=== PATIENT | male | born 1960 | race Caucasian/White ===

== ENCOUNTER 2016-07-25 10:43 | Outpatient (CLI) | payer BC, OTHER | END 2016-07-25 10:44 | disposition home or self-care (01) | DX: G47.33 Obstructive sleep apnea (adult) (pediatric) (principal) ==

== ENCOUNTER 2016-10-02 10:47 | Outpatient (CLI) | payer BC, OTHER | END 2016-10-02 10:48 | disposition home or self-care (01) | DX: G47.33 Obstructive sleep apnea (adult) (pediatric) (principal) ==

== ENCOUNTER 2017-07-10 15:05 | Outpatient (CLI) | payer BC, OTHER ==
[2017-07-10 15:02] LABS: BASOPHILS # (AUTO) 0.1 10^3/uL (0.0-0.1); BASOPHILS % (AUTO) 1.3 %; EOSINOPHILS # (AUTO) 0.1 10^3/uL (0.0-0.7); EOSINOPHILS % (AUTO) 3.2 %; HCT - HEMATOCRIT 45.8 % (42.0-52.0); HGB - HEMOGLOBIN 15.6 g/dL (14.0-18.0); LYMPHOCYTES # (AUTO) 1.1 10^3/uL (1.5-3.5); MEAN CORPUSCULAR HEMOGLOBIN 30.2 pg (27.0-31.0); MEAN CORPUSCULAR HGB CONC 34.2 g/dL (32.0-36.0); MEAN CORPUSCULAR VOLUME 88.2 fL (80.0-94.0); MEAN PLATELET VOLUME 11.8 fL (7.4-11.4); MONOCYTES # (AUTO) 0.5 10^3/uL (0.0-1.0); MONOCYTES % (AUTO) 10.1 %; NEUTROPHILS # (AUTO) 2.9 10^3/uL (1.5-6.6); NEUTROPHILS % (AUTO) 61.4 %; RED BLOOD COUNT 5.19 10^6/uL (4.70-6.10); RED CELL DISTRIBUTION WIDTH 13.4 % (12.0-15.0); UNCORRECTED WHITE BLOOD COUNT 4.7 x10^3/uL; WHITE BLOOD COUNT 4.7 x10^3/uL (4.8-10.8)
[2017-07-10 15:12] LABS: ALBUMIN/GLOBULIN RATIO 1.4 (1.0-2.2); BILIRUBIN,TOTAL 1.1 mg/dL (0.2-1.0); BUN - BLOOD UREA NITROGEN 24 mg/dL (6-20); CARBON DIOXIDE - CO2 26 mmol/L (21-32); CHLORIDE 102 mmol/L (101-111); CHOL/HDL RATIO 3.5 (<5.0); CHOLESTEROL 178 mg/dL; GFR - MDRD 76 (>89); GLUCOSE 107 mg/dL (70-100); HDL CHOLESTEROL 51 mg/dL; LDL/HDL RATIO 2.2 (<3.6); POTASSIUM 4.3 mmol/L (3.5-5.0); SODIUM 136 mmol/L (135-145); TOTAL PROTEIN 7.5 g/dL (6.7-8.2); TRIGLYCERIDES 84 mg/dL; VLDL CHOLESTEROL 17 mg/dL
== END 2017-07-10 15:06 | disposition home or self-care (01) ==
LOC: LAB.WCP 15:05
PROVIDERS: ATTEND Family Medicine
DX: Z00.00 Encounter for general adult medical examination without abnormal findings (principal); Z12.5 Encounter for screening for malignant neoplasm of prostate
CPT/HCPCS: 36415; 80053; 80061; 84153; 84443; 85025

== ENCOUNTER 2017-11-25 14:54 | Emergency (ER) | payer OTHER ==
--- NOTE | 2017-11-25 15:44 | ED Physician Documentation ---
PD HPI TRUNK INJURY - Stated complaint Stated Complaint: LEFT RIB AND BACK INJ. - Chief complaint Chief Complaint: Trauma Ch/Bk - History obtained from History obtained from: Patient, Family - History of Present Illness Location: Anterior chest, Posterior chest Type of injury: Crush Timing - onset: Today Timing - duration: Minutes Timing - details: Abrupt onset, Still present Quality: Pain, Sharp Improved by: Rest, Immobilization Worsened by: Moving, Palpating Associated symtptoms: No: Weakness, Numbness, Tingling, Swelling, Discoloration , Feel faint, Syncope Contributing factors: No: Anticoagulated Where injury occured: Work Similar symptoms before: Has not had sx before Recently seen: Not recently seen - Additional information Additional information: 57-year-old 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 He had loss of air but not LOC. He has pain to breath or move. He is not short of breath or faint feeling. Review of Systems Constitutional: denies: Fever Eyes: denies: Decreased vision Ears: denies: Ear pain Nose: denies: Congestion Throat: denies: Sore throat Cardiac: reports: Chest pain / pressure. denies: Pedal edema, Calf pain Respiratory: denies: Dyspnea, Cough GI: denies: Abdominal Pain, Nausea, Vomiting : denies: Dysuria, Frequency PD PAST MEDICAL HISTORY - Past Medical History Cardiovascular: Hypertension Respiratory: Sleep apnea, CPAP use, Other HEENT: None - Present Medications Home Medications: Ambulatory Orders Medication Instructions Recorded Confirmed Lisinopril 30 mg PO DAILY 08/13/13 08/13/13 HYDROcod/ACETAM 5/325 [[place] 5/325] 1 - 2 ea PO Q6H PRN #15 tablet 11/25/17 - Allergies Allergies/Adverse Reactions: Allergies Allergy/AdvReac Type Severity Reaction Status Date / Time No Known Drug Allergies Allergy Verified 11/25/17 16:28 PD ED PE NORMAL - Vitals Vital signs reviewed: Yes (hypertensive) - General General: Alert and oriented X 3, No acute distress, Well developed/nourished - HEENT HEENT: Atraumatic, PERRL, EOMI - Neck Neck: Supple, no meningeal sign, No bony TTP - Cardiac Cardiac: RRR, No murmur - Respiratory Respiratory: No respiratory distress, Clear bilaterally, Other (There is a bruise to the posterior chest wall mid thoracic spine with surrounding tenderness. There is no crepitance. There is a corresponding bruise to the sternum and some pain to the left lateral chest wall. ) - Abdomen Abdomen: Soft, Non tender (specifically not tender over the left upper quadrant. ) - Back Back: No CVA TTP, No spinal TTP - Derm Derm: Normal color, Warm and dry, No rash - Extremities Extremities: No deformity, No edema - Neuro Neuro: Alert and oriented X 3, No motor deficit, No sensory deficit, Normal speech Eye Opening: Spontaneous Motor: Obeys Commands Verbal: Oriented GCS Score: 15 - Psych Psych: Normal mood, Normal affect Results - Vitals Vitals: Vital Signs - 24 hr 11/25/17 15:09 Temperature 36.8 C Heart Rate 79 Respiratory 22 Rate Blood Pressure 140/89 H O2 Saturation 98 Oxygen O2 Source Room air - Labs Labs: Laboratory Tests 11/25/17 11/25/17 15:55 15:55 WBC 9.1 RBC 5.41 Hgb 16.2 Hct 47.4 MCV 87.5 MCH 30.0 MCHC 34.3 RDW 13.1 Plt Count 91 L MPV 10.9 Neut # 7.3 H Lymph # 1.1 L [place] # 0.6 Eos # 0.1 Baso # 0.0 Absolute Nucleated RBC 0.01 Nucleated RBC % 0.2 Sodium 138 Potassium 4.6 Chloride 105 Carbon Dioxide 26 Anion Gap 7.0 BUN 23 H Creatinine 1.1 Estimated GFR (MDRD) 69 L Glucose 115 H Calcium 9.9 Total Bilirubin 0.9 AST 36 ALT 30 Alkaline Phosphatase 80 Total Protein 7.7 Albumin 4.6 Globulin 3.1 Albumin/Globulin Ratio 1.5 Lipase 38 - Rads (name of study) CT chest with Radiology: Prelim report reviewed (Impression: Mild anterior and posterior chest wall subcutaneous fat stranding could represent chest wall contusions otherwise no acute findings are seen.), EMP read indepedently, See rad report PD MEDICAL DECISION MAKING - ED course Complexity details: reviewed results, re-evaluated patient, considered differential, d/w patient, d/w family ED course: 57-year-old male who his upper torso was clamped in the canopy of an F-18 fighter jet has bruises to his back and his anterior chest and on CT scanning he has no evidence of fractures or internal injuries. He does have bruising to the surface. Departure - Departure Disposition: 01 Home, Self Care Clinical Impression: Chest wall contusion Qualifiers: Encounter type: initial encounter Laterality: unspecified laterality Qualified Code(s): S20.219A - Contusion of unspecified front wall of thorax, initial encounter Condition: Stable Instructions: ED Contusion Chest Wall Follow-Up: Jair Fletcher MD [Primary Care Provider] - Prescriptions: HYDROcod/ACETAM 5/325 [[place] 5/325] 1 - 2 ea PO Q6H PRN #15 tablet PRN Reason: Pain
[2017-11-25] MEDS ORDERED: IOPAMIDOL-300 100 ML VIAL ONE (16:02)
[2017-11-25 16:03] LABS: BASOPHILS % (AUTO) 0.4 %; EOSINOPHILS # (AUTO) 0.1 10^3/uL (0.0-0.7); EOSINOPHILS % (AUTO) 1.2 %; HGB - HEMOGLOBIN 16.2 g/dL (14.0-18.0); LYMPHOCYTES # (AUTO) 1.1 10^3/uL (1.5-3.5); LYMPHOCYTES % (AUTO) 12.1 %; MEAN CORPUSCULAR HGB CONC 34.3 g/dL (32.0-36.0); MEAN CORPUSCULAR VOLUME 87.5 fL (80.0-94.0); MEAN PLATELET VOLUME 10.9 fL (7.4-11.4); MONOCYTES # (AUTO) 0.6 10^3/uL (0.0-1.0); MONOCYTES % (AUTO) 6.7 %; NEUTROPHILS # (AUTO) 7.3 10^3/uL (1.5-6.6); NEUTROPHILS % (AUTO) 79.6 %; PLT - PLATELET COUNT 91 10^3/uL (130-450); RED BLOOD COUNT 5.41 10^6/uL (4.70-6.10); RED CELL DISTRIBUTION WIDTH 13.1 % (12.0-15.0); WHITE BLOOD COUNT 9.1 x10^3/uL (4.8-10.8)
[2017-11-25 16:12] LABS: ALBUMIN 4.6 g/dL (3.2-5.5); ALBUMIN/GLOBULIN RATIO 1.5 (1.0-2.2); BILIRUBIN,TOTAL 0.9 mg/dL (0.2-1.0); CALCIUM 9.9 mg/dL (8.5-10.3); CREATININE 1.1 mg/dL (0.6-1.2); TOTAL PROTEIN 7.7 g/dL (6.7-8.2)
--- NOTE | 2017-11-25 16:59 | CT Preliminary Report ---
Exam: CT CHEST W/ IMPRESSION: Mild anterior and posterior chest wall subcutaneous fat stranding, could represent chest wall contusions. Otherwise, no acute findings are seen. [id number]
--- NOTE | 2017-11-25 16:59 | CT Report ---
EXAM: CT CHEST EXAM DATE: 11/25/2017 04:23 PM. CLINICAL HISTORY: Upper chest sandwiched by F18 canopy. COMPARISONS: None. TECHNIQUE: Routine helical CT imaging was performed through the chest. IV contrast: 80 ML Isovue 300. Reconstructions: Coronal and sagittal. In accordance with CT protocol optimization, one or more of the following dose reduction techniques w ere utilized for this exam: automated exposure control, adjustment of mA and/or KV based on patient s ize, or use of iterative reconstructive technique. FINDINGS: Mediastinum: No thoracic aortic aneurysm, dissection or laceration. No mediastinal blood se en. Normal heart size. No mediastinal or hilar lymphadenopathy. Lungs: Mild breathing motion artifact noted. No acute findings are seen. No consolidation, airspace d isease, pleural effusion or pneumothorax. Bones: No evidence for acute fracture. Mild anterior and posterior chest wall subcutaneous fat stranding, could represent chest wall contusi ons. No acute findings seen in the upper abdomen. IMPRESSION: Mild anterior and posterior chest wall subcutaneous fat stranding, could represent chest wall contusions. Otherwise, no acute findings are seen. [facility] Referring Provider Line: [phone] SITE ID: [id number]
[2017-11-25] MEDS ORDERED: IOPAMIDOL-300 100 ML VIAL IVP ONE (17:19)
[2017-11-25 18:15] VITALS: BP 140/90
== END 2017-11-25 17:32 | disposition home or self-care (01) ==
LOC: ED 14:54
DX: S20.219A Contusion of unspecified front wall of thorax, initial encounter (principal); W23.0XXA Caught, crushed, jammed, or pinched between moving objects, initial encounter; Y92.135 Garage on military base as the place of occurrence of the external cause; Y99.0 Civilian activity done for income or pay; I10 Essential (primary) hypertension; G47.30 Sleep apnea, unspecified
CPT/HCPCS: 1040M; 36415; 71260; 80053; 83690; 85025; 99283; Q9967

== ENCOUNTER 2018-08-13 15:12 | Outpatient (CLI) | payer OTHER | END 2018-08-13 15:13 | disposition home or self-care (01) | LOC: SC 15:12 | PROVIDERS: ATTEND Nurse Practitioner Family | DX: G47.33 Obstructive sleep apnea (adult) (pediatric) (principal) | CPT/HCPCS: 99212; 99213 ==

== ENCOUNTER 2019-05-13 06:43 | Day surgery (SDC) | payer OTHER ==
[2019-05-13] MEDS ORDERED: LACTATED RINGERS 1,000 ML IV ONE (07:21)
[2019-05-13] MEDS ORDERED: MIDAZOLAM 2 MG/2 ML VIAL IVP ONE (08:36)
[2019-05-13] MEDS ORDERED: fentaNYL 250 MCG/5 ML VIAL IVP ONE (08:36)
[2019-05-13 09:22] VITALS: BP 104/77
== END 2019-05-13 06:44 | disposition home or self-care (01) ==
LOC: SDS 06:43
PROVIDERS: ATTEND Surgery
PROC: 0DBP8ZZ Excision of Rectum, Via Natural or Artificial Opening Endoscopic (ICD-10-PCS; principal; 2019-05-13 08:30)
DX: Z12.11 Encounter for screening for malignant neoplasm of colon (principal); K62.1 Rectal polyp; I10 Essential (primary) hypertension; G47.30 Sleep apnea, unspecified
CPT/HCPCS: 45380; 88305; J3010; J7120

== ENCOUNTER 2019-08-10 07:30 | Outpatient (CLI) | payer OTHER ==
[2019-08-10 12:04] LABS: BASOPHILS # (AUTO) 0.1 10^3/uL (0.0-0.1); BASOPHILS % (AUTO) 1.1 %; EOSINOPHILS # (AUTO) 0.1 10^3/uL (0.0-0.7); EOSINOPHILS % (AUTO) 3.1 %; HGB - HEMOGLOBIN 15.6 g/dL (14.0-18.0); LYMPHOCYTES # (AUTO) 1.2 10^3/uL (1.5-3.5); LYMPHOCYTES % (AUTO) 25.3 %; MEAN CORPUSCULAR HEMOGLOBIN 29.8 pg (27.0-31.0); MEAN CORPUSCULAR HGB CONC 32.7 g/dL (32.0-36.0); MEAN PLATELET VOLUME 14.1 fL (7.4-11.4); MONOCYTES # (AUTO) 0.5 10^3/uL (0.0-1.0); MONOCYTES % (AUTO) 10.5 %; NEUTROPHILS # (AUTO) 2.7 10^3/uL (1.5-6.6); NEUTROPHILS % (AUTO) 59.8 %; PLT - PLATELET COUNT 98 10^3/uL (130-450); RED BLOOD COUNT 5.24 10^6/uL (4.70-6.10); RED CELL DISTRIBUTION WIDTH 12.8 % (12.0-15.0); WHITE BLOOD COUNT 4.6 x10^3/uL (4.8-10.8)
[2019-08-10 12:44] LABS: ALBUMIN 4.3 g/dL (3.2-5.5); ALBUMIN/GLOBULIN RATIO 1.7 (1.0-2.2); ALKALINE PHOSPHATASE 59 IU/L (42-121); ALT ALANINE AMINOTRANSFERASE 27 IU/L (10-60); AST ASPARTATE AMINOTRANSFERASE 28 IU/L (10-42); BILIRUBIN,TOTAL 1.1 mg/dL (0.2-1.0); BUN - BLOOD UREA NITROGEN 18 mg/dL (6-20); CALCIUM 9.8 mg/dL (8.5-10.3); CARBON DIOXIDE - CO2 25 mmol/L (21-32); CHLORIDE 105 mmol/L (101-111); CHOL/HDL RATIO 3.7 (<5.0); CHOLESTEROL 178 mg/dL; GFR - MDRD 76 (>89); GLUCOSE 90 mg/dL (70-100); HDL CHOLESTEROL 48 mg/dL; LDL CHOLESTEROL,CALCULATED 111 mg/dL; LDL/HDL RATIO 2.3 (<3.6); SODIUM 136 mmol/L (135-145); TOTAL PROTEIN 6.9 g/dL (6.7-8.2); VLDL CHOLESTEROL 19 mg/dL
== END 2019-08-10 23:59 | disposition home or self-care (01) ==
LOC: LAB.WCP 07:30
PROVIDERS: ATTEND Physician Assistant Medical
DX: Z00.00 Encounter for general adult medical examination without abnormal findings (principal); Z12.5 Encounter for screening for malignant neoplasm of prostate
CPT/HCPCS: 36415; 80053; 80061; 83721; 84153; 84443; 85025

== ENCOUNTER 2019-12-08 15:02 | Outpatient (CLI) | payer OTHER ==
[2019-12-08 18:14] LABS: PSA FREE 0.42 ng/mL (0.16-2.81)
[2019-12-08 18:15] LABS: PSA TOTAL 2.05 ng/mL (0.000-2.000)
== END 2019-12-08 23:59 | disposition home or self-care (01) ==
LOC: LAB.WCP 15:02
PROVIDERS: ATTEND Physician Assistant Medical
DX: R97.20 Elevated prostate specific antigen [PSA] (principal)
CPT/HCPCS: 36415; 84153; 84154

== ENCOUNTER 2020-02-04 16:28 | Outpatient (CLI) | payer OTHER ==
--- NOTE | 2020-02-05 11:25 | XRAY Report ---
PROCEDURE: Knee 3 View BILAT INDICATIONS: KNEE PAIN,BILATERAL TECHNIQUE: 3 views of the right and left knee(s) were acquired. COMPARISON: None. FINDINGS: Bones: No fractures or dislocations. No suspicious bony lesions. Severe bilateral knee medial and p atellofemoral compartment osteoarthritis including joint space narrowing, subchondral sclerosis and m arginal osteophytosis. Mild bilateral knee lateral compartment osteoarthritis with marginal osteophyt osis. Soft tissues: No joint effusion. No suspicious soft tissue calcifications. IMPRESSION: Bilateral knee osteoarthritis. Reviewed by: Mackenzie Hutson MD, PhD on 02/05/2020 11:23 AM PDT Approved by: Mackenzie Hutson MD, PhD on 02/05/2020 11:23 AM PDT Station ID: [id number]
== END 2020-02-04 16:29 | disposition home or self-care (01) ==
LOC: DI 16:28
PROVIDERS: ATTEND Physician Assistant Medical
DX: M17.0 Bilateral primary osteoarthritis of knee (principal)

== ENCOUNTER 2020-06-01 15:42 | Outpatient (CLI) | payer OTHER ==
--- NOTE | 2020-06-01 16:38 | SLEEP CARE CONSULTATION ---
Information from patient questionnaire entered by Joann Cordova. I have reviewed and concur with the information entered by Joann Cordova. This document represents the service I personally performed and the decisions made by , Monie Dupont ARNP. History of Present Illness Service Date and Time: 06/01/2020 1542 Previous diagnosis: Mild, Obstructive Sleep Apnea-Hypopnea Syndrome AHI: 7.5 Reason for follow up: annual (last seen 07/2018) Equipment type: CPAP Equipment obtained from: Other (online ordering now) Mask style: Nasal Backup mask available: Yes (old mask) Last cushion change: 3 months Year and Where: 2005 [facility] Type of Sleep Study: Polysomnography HPI additional information: LYNNE POLANCO was diagnosed to have mild, AHI 7.5, obstructive sleep apnea- hypopnea syndrome and returned today for CPAP therapy annual follow-up. CPAP Compliance Data - Data Reviewed with Patient Average duration of nightly device use: 6 h 20 min Compliance rate %: 97.2 Current pressure setting (cmH2O): 9-12 Humidity settin Heated hose settin Average residual AHI: 4.5 Average large leak: 43 sec Subjective Patient concerns: reports: dry mouth, nose, throat (dry mouth). denies: aerophagia, mask discomfort, air blowing in eyes, mask leak noise, condensation in mask/hose, nasal congestion, epistaxis, other Observed to snore while using device: No Current pressure setting perceived as: comfortable On therapy, patient: reports: sleeping better, awakening more refreshed, being more awake and alert during the day, more rested overall. denies: drowsiness while driving Initial [place] Sleepiness Scale score: 7 (in 2015) Current [place] Sleepiness Scale score: 8 Allergies and Home Medications Drug allergies reviewed: Yes (NKDA) Home medication list reviewed: Yes (no changes) Review of Systems Review of systems same as previous: Yes (no changes) Physical Exam Heart Rate: 65 O2 Saturation: 98 Height: 6 ft 2 in Weight: 241 lb Body Mass Index: 30.9 BMI Classification: Obese Impression and Plan 1. Obstructive Sleep Apnea-Hypopnea Syndrome, mild, with good treatment compliance and fair apnea control. On CPAP therapy, the patient has better sleep quality and is more rested overall. He had been having a dry mouth more often in the mornings. His humidity is set at 5 and heated hose at 1. Oral dryness can be reduced by adjusting humidity setting higher or heated hose lower or by adjusting both settings. Patient advised that chronic oral dryness can affect dental health and advised to follow up with dentist. In addition, there are oral dryness products that can be used to reduce dryness such as Biotene products, Dry mouth rinse and Xylomelts. Patient to discuss best option with dentist. He was getting supplies from [employer] but had many issues so he started just getting supplies online. For patient supply concerns we will transfer his care to a new DME supplier. Patient was informed that another DME can be used. I will have my packaging coordinator inform of DME options. A DWO prescription will then be made. Patient advised to contact this office if further supply problems. No adjustments to his pressure is needed. Patient's apnea severity and rationale for treatment to reduce apnea, improve sleep quality and reduce cardiovascular and cerebrovascular events was reviewed. I also reviewed the benefit of consiste nt device use of CPAP for hypertension. * Continue autoCPAP pressure at 9-12 cmH2O * Transfer DME and update supplies * Notify me if snoring with mask or feeling that the pressure is too much or too little * Attempt to lose weight * Call this office if any problems using CPAP * Return for follow up in 1 year, or sooner if concerns arise Counseling Topics: Spare mask, Weight loss health impact Visit Type: In Office Time Spent with Patient (minutes): 18 Provider Statement: I spent 100% of the Face to Face Visit with the patient with greater than 50% spent counseling the patient and coordination of care.
== END 2020-06-01 15:43 | disposition home or self-care (01) ==
LOC: SC 15:42
PROVIDERS: ATTEND Nurse Practitioner Family
DX: G47.33 Obstructive sleep apnea (adult) (pediatric) (principal); E66.9 Obesity, unspecified; Z68.30 Body mass index [BMI] 30.0-30.9, adult
CPT/HCPCS: 99212; 99213

== ENCOUNTER 2020-08-05 08:00 | Outpatient (CLI) | payer OTHER ==
[2020-08-05 12:59] LABS: BASOPHILS # (AUTO) 0.1 10^3/uL (0.0-0.1); BASOPHILS % (AUTO) 1.2 %; EOSINOPHILS # (AUTO) 0.1 10^3/uL (0.0-0.7); EOSINOPHILS % (AUTO) 3.2 %; HGB - HEMOGLOBIN 14.9 g/dL (14.0-18.0); MEAN CORPUSCULAR HEMOGLOBIN 29.6 pg (27.0-31.0); MEAN CORPUSCULAR HGB CONC 32.5 g/dL (32.0-36.0); MEAN CORPUSCULAR VOLUME 91.1 fL (80.0-94.0); MEAN PLATELET VOLUME 14.3 fL (7.4-11.4); MONOCYTES # (AUTO) 0.5 10^3/uL (0.0-1.0); MONOCYTES % (AUTO) 11.8 %; NEUTROPHILS # (AUTO) 2.7 10^3/uL (1.5-6.6); NEUTROPHILS % (AUTO) 61.6 %; PLT - PLATELET COUNT 98 10^3/uL (130-450); RED BLOOD COUNT 5.03 10^6/uL (4.70-6.10); RED CELL DISTRIBUTION WIDTH 12.8 % (12.0-15.0); WHITE BLOOD COUNT 4.3 x10^3/uL (4.8-10.8)
[2020-08-05 13:23] LABS: ALBUMIN 4.3 g/dL (3.2-5.5); ALBUMIN/GLOBULIN RATIO 1.5 (1.0-2.2); ALKALINE PHOSPHATASE 62 IU/L (42-121); ALT ALANINE AMINOTRANSFERASE 22 IU/L (10-60); AST ASPARTATE AMINOTRANSFERASE 26 IU/L (10-42); BUN - BLOOD UREA NITROGEN 21 mg/dL (6-20); CARBON DIOXIDE - CO2 25 mmol/L (21-32); CHLORIDE 107 mmol/L (101-111); CHOL/HDL RATIO 3.4 (<5.0); CHOLESTEROL 157 mg/dL; CREATININE 0.9 mg/dL (0.6-1.2); GLUCOSE 97 mg/dL (70-100); HDL CHOLESTEROL 46 mg/dL; LDL CHOLESTEROL,CALCULATED 98 mg/dL; LDL/HDL RATIO 2.1 (<3.6); TOTAL PROTEIN 7.1 g/dL (6.7-8.2); VLDL CHOLESTEROL 13 mg/dL
== END 2020-08-05 23:59 | disposition home or self-care (01) ==
LOC: LAB.WCP 08:00
PROVIDERS: ATTEND Physician Assistant Medical
DX: Z00.00 Encounter for general adult medical examination without abnormal findings (principal); Z12.5 Encounter for screening for malignant neoplasm of prostate
CPT/HCPCS: 36415; 80053; 80061; 81599; 83721; 84153; 84270; 84402; 84403; 84443; 85025

== ENCOUNTER 2021-07-05 15:25 | Outpatient (CLI) | payer BC, OTHER ==
--- NOTE | 2021-07-05 16:01 | SLEEP CARE CONSULTATION ---
Information from patient questionnaire entered by Can Crowe MA. I have reviewed and concur with the information entered by Can Crowe MA. This document represents the service I personally performed and the decisions made by , Monie Dupont ARNP. History of Present Illness Service Date and Time: 07/05/2021 1525 Previous diagnosis: Mild, Obstructive Sleep Apnea-Hypopnea Syndrome AHI: 7.5 Reason for follow up: annual (05/2020) Equipment type: CPAP Equipment obtained from: Other (online ordering now) Mask style: Nasal (cushion) Backup mask available: Yes (old mask) Last cushion change: 1 month Year and Where: 2005 [facility] Type of Sleep Study: Polysomnography HPI additional information: LYNNE POLANCO was diagnosed to have mild, AHI 7.5, obstructive sleep apnea- hypopnea syndrome and returned today for CPAP therapy annual follow-up. Sleep Study - Results Type of Sleep Study: Polysomnography Year and Where: 2005 [facility] CPAP Compliance Data - Data Reviewed with Patient Average duration of nightly device use: 6 hours 33 minutes Compliance rate %: 98.9 Current pressure setting (cmH2O): 9-12 Humidity settin Heated hose settin Average residual AHI: 4.7 Average large leak: 59 seconds Subjective Patient concerns: reports: dry mouth, nose, throat (dry throat). denies: aerophagia, mask discomfort, air blowing in eyes, mask leak noise, condensation in mask/hose, nasal congestion, epistaxis, other Observed to snore while using device: No Current pressure setting perceived as: comfortable On therapy, patient: reports: sleeping better, awakening more refreshed, being more awake and alert during the day, more rested overall. denies: drowsiness while driving Initial [place] Sleepiness Scale score: 7 (in 2014) Current [place] Sleepiness Scale score: 6 (2020) Allergies and Home Medications Home medication list reviewed: Yes (no changes) Review of Systems Review of systems same as previous: Yes (no changes) Physical Exam Vital signs obtained and entered by: ELISA MALCOLM Blood Pressure: 125/87 (RIGHT) Cuff size: wrist Heart Rate: 65 O2 Saturation: 98 (WITH MASK) Height: 6 ft 2 in Weight: 237 lb (WITH CLOTHES) Weight change since last visit: 4 pound loss Body Mass Index: 30.4 BMI Classification: Obese Impression and Plan 1. Obstructive Sleep Apnea-Hypopnea Syndrome, mild, with good treatment compliance and good apnea control. On CPAP therapy, the patient has better sleep quality and is more rested overall. Lynne has some dry throat when using the CPAP. He has his humidity set at 5 and heated hose at 1. Oral dryness can be reduced by adjusting humidity setting higher or heated hose lower or by adjusting both settings. Patient advised that chronic oral dryness can affect dental health and advised to follow up with dentist. Patient to discuss best option with dentist. He is not sure if he may be sleeping with his mouth open at night which could also cause dryness. He states he will look into this. Patient has a Dreamstation that he got in 2016. I informed the patient that [employer] has a recall on several devices like the patients machine. Patient was encouraged to register their device online with [employer] for the recall to see if their device is affected. If their device is affected they should start a claim. Patient denies any black particles seen in machine or hoses, any unusual odors coming from device. Patient has not experienced any physical symptoms such as upper airway irritation, headache, skin or eye irritation, asthma, nausea/vomiting, difficulty breathing or chest pain. If patient is not able to sleep due to waking up choking, gasping for air or other respiratory distress that they may decide to continue using it until it is either replaced or repaired. Patient voiced understanding and agreement with plan. Patient's apnea severity and rationale for treatment to reduce apnea, improve sleep quality and reduce cardiovascular and cerebrovascular events was reviewed. I also reviewed the benefit of consistent device use of CPAP for hypertension. * Continue auto CPAP pressure at 9-12 cmH2O * Update device * Notify me if snoring with mask or feeling that the pressure is too much or too little * Attempt to lose weight * Call this office if any problems using CPAP * Return for follow up one month after device is updated, or sooner if concerns arise Counseling Topics: Spare mask, Weight loss health impact Visit Type: In Office Time Spent with Patient (minutes): 20 Provider Statement: I spent 100% of the Face to Face Visit with the patient with greater than 50% spent counseling the patient and coordination of care.
[2021-07-05 16:02] VITALS: BP 125/87
== END 2021-07-05 15:26 | disposition home or self-care (01) ==
LOC: SC 15:25
PROVIDERS: ATTEND Nurse Practitioner Family
DX: G47.33 Obstructive sleep apnea (adult) (pediatric) (principal); E66.9 Obesity, unspecified; Z68.30 Body mass index [BMI] 30.0-30.9, adult
CPT/HCPCS: 99212; 99213

== ENCOUNTER 2022-01-08 08:00 | Outpatient (CLI) | payer BC, OTHER ==
--- NOTE | 2022-01-08 11:27 | XRAY Report ---
PROCEDURE: Lumbar Spine Complete INDICATIONS: LOW BACK PX TECHNIQUE: 5 views of the lumbar spine were acquired. COMPARISON: None. FINDINGS: Bones: 5 [id number] vertebrae are present. Significant progression of rotatory dextroscoliotic curvature, centered at L2-L3, now moderate. No vertebral body compression fractures. Prominent multi level facet arthropathy. Multilevel disc height loss. Suspect canal stenosis and foraminal stenosis. No suspicious bony lesions. Soft tissues: Overlying bowel gas pattern is normal. No suspicious soft tissue calcifications. IMPRESSION: 1. Significant interval progression of rotatory dextroscoliotic curvature, now moderate. 2. Multilevel facet arthropathy. Suspect canal stenosis and foraminal stenosis. 3. No evidence acute bony abnormality of the lumbar spine. If clinical suspicion and/or symptoms persist, further assessment with repeat plain films or advanced imaging (e.g., CT, MRI, or bone scan) may be helpful for further assessment. Reviewed by: Wander Shrestha MD on 01/08/2022 11:26 AM PDT Approved by: Wander Shrestha MD on 01/08/2022 11:26 AM PDT Station ID: [id number]
== END 2022-01-08 23:59 | disposition home or self-care (01) ==
LOC: DI.N 08:00
PROVIDERS: ATTEND Nurse Practitioner
DX: M47.816 Spondylosis without myelopathy or radiculopathy, lumbar region (principal); M41.9 Scoliosis, unspecified

== ENCOUNTER 2023-01-21 07:18 | Outpatient (CLI) | payer MEDICARE, OTHER ==
[2023-01-21 12:36] LABS: CHOL/HDL RATIO 3.3 (<5.0); CHOLESTEROL 160 mg/dL; HDL CHOLESTEROL 48 mg/dL; LDL CHOLESTEROL,CALCULATED 86 mg/dL; LDL/HDL RATIO 1.8 (<3.6); TRIGLYCERIDES 128 mg/dL; VLDL CHOLESTEROL 26 mg/dL
== END 2023-01-21 07:19 | disposition home or self-care (01) ==
LOC: LAB.N 07:18
PROVIDERS: ATTEND Physician Assistant Medical
DX: I10 Essential (primary) hypertension (principal)
CPT/HCPCS: 36415; 80061; 83721